=== PATIENT | female | born 1980 | race Two or more races ===

== ENCOUNTER 2017-08-08 03:20 | Emergency (ER) | payer SELFPAY ==
[2017-08-08 04:06] LABS: URINE HCG POC HCG NEGATIVE (Negative)
[2017-08-08 04:18] LABS: AGAP ISTAT 16 mmol/L (6-14); BUN ISTAT 12 mg/dL (8-26); CHLORIDE ISTAT 104 mmol/L (98-110); CREATININE ISTAT 0.8 mg/dL (0.5-1.4); GLUCOSE ISTAT 93 mg/dL (70-99); HEMATOCRIT ISTAT 39 % (36-40); HEMOGLOBIN ISTAT 13.3 g/dL (12-15); ION CA ISTAT 1.03 mmol/L (1.13-1.32); POTASSIUM ISTAT 3.7 mmol/L (3.5-5.0); SODIUM ISTAT 138 mmol/L (135-145); TOT CO2 ISTAT 24 mmol/L (23-32)
== END 2017-08-08 06:11 | disposition home or self-care (01) ==
LOC: ER 03:20
DX: N93.8 Other specified abnormal uterine and vaginal bleeding (principal); N83.201 Unspecified ovarian cyst, right side
CPT/HCPCS: 36415; 76856; 80047; 81025; 85014; 85018; 99284-25